=== PATIENT | female | born 1980 | race American Indian/Alaskan Native ===

== ENCOUNTER 2019-06-23 21:13 | Emergency (ER) | payer MEDICAID, OTHER ==
[2019-06-23] MEDS ORDERED: Lidocaine 1% 20 ML MDV INJECT ONE (21:48)
[2019-06-23] MEDS ORDERED: Bacitracin Oint 1 GM U/D Packet TOP ONE (21:49)
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
== END 2019-06-23 22:55 | disposition home or self-care (01) ==
LOC: JP.ED 21:13
DX: S51.812A Laceration without foreign body of left forearm, initial encounter (principal); Z88.8 Allergy status to other drugs, medicaments and biological substances; F32.9 Major depressive disorder, single episode, unspecified; Z79.899 Other long term (current) drug therapy; F17.210 Nicotine dependence, cigarettes, uncomplicated
CPT/HCPCS: 12032; 99282; J2001